=== PATIENT | male | born 1970 | race Two or more races ===

== ENCOUNTER → 2018-07-29 | Outpatient (CLI) | payer OTHER ==
--- NOTE | 2018-07-29 14:45 | KCIC ---
CHEST AP ONLY History: Suspected active tuberculosis Comparison: None. Findings: 2 AP views of the chest are submitted. There is no significant infiltrate, pleural fluid, pneumothorax. There are a couple of small adjacent granulomas of the mid left hemithorax, questionably near right apex. Heart size is within normal limits. Impression: 1. No acute radiographic abnormality is identified, no radiographic findings suggestive of active tuberculosis. Electronically signed by: Mohan Eli MD (07/29/2018 2:42 PM) [id number]
== END | disposition home or self-care (01) ==
LOC: KCIC 10:30
PROVIDERS: ATTEND Family Medicine
DX: Z20.1 Contact with and (suspected) exposure to tuberculosis (principal)
CPT/HCPCS: 71045